=== PATIENT | female | born 1950 | race Hispanic/Latino ===

== ENCOUNTER → 2020-07-23 | Outpatient (CLI) | payer OTHER | END | disposition home or self-care (01) | LOC: RAH 13:09 | PROVIDERS: ATTEND Internal Medicine Cardiovascular Disease | DX: Z13.6 Encounter for screening for cardiovascular disorders (principal) | CPT/HCPCS: 75571 ==

== ENCOUNTER 2021-07-28 08:41 | Day surgery (SDC) | payer MEDICARE ==
[~2021-07-28] VITALS: Ht 157.5 cm; Wt 99.8 kg
[2021-07-28] VITALS (17 sets, daily range): BP systolic 130–180; BP diastolic 71–95
[~2021-07-28 08:41] MED LIST: 0.9%NACL 1000ML 1,000 ML IV ONE
[2021-07-28] MEDS ORDERED: TELM80TA10 PO (10:06)
[2021-07-28] MEDS ORDERED: PANT40TA54 PO (10:06)
[2021-07-28] MEDS ORDERED: APIX5TAB PO (10:06)
[2021-07-28] MEDS ORDERED: LEVO50CA4 PO (10:06)
[2021-07-28] MEDS ORDERED: ATOR20TA65 PO (10:06)
[2021-07-28] MEDS ORDERED: METF-446 PO (10:06)
[2021-07-28] MEDS ORDERED: METO25TA6 PO (10:06)
[2021-07-28] MEDS ORDERED: DULA1.5P SQ (10:06)
[2021-07-28] MEDS ORDERED: IOHEXOL-350 50ML VIAL IV ONE (11:11)
[2021-07-28] MEDS ORDERED: SUCCINYLCHOLINE 200MG/10ML SYR ONE (11:52)
[2021-07-28] MEDS ORDERED: PROPOFOL 10 MG/ML 20ML VIAL IV ONE (11:52)
== END 2021-07-28 14:25 | disposition home or self-care (01) ==
LOC: ENDO 08:41 → DAH 08:41 → ENDO 14:25
PROVIDERS: ATTEND Internal Medicine
DX: K83.1 Obstruction of bile duct (principal); Z20.822 Contact with and (suspected) exposure to COVID-19; K83.9 Disease of biliary tract, unspecified; I10 Essential (primary) hypertension; I25.2 Old myocardial infarction; I25.10 Atherosclerotic heart disease of native coronary artery without angina pectoris; E11.9 Type 2 diabetes mellitus without complications; E78.00 Pure hypercholesterolemia, unspecified; Z90.710 Acquired absence of both cervix and uterus; Z90.49 Acquired absence of other specified parts of digestive tract; Z98.890 Other specified postprocedural states; Z98.891 History of uterine scar from previous surgery; Z87.442 Personal history of urinary calculi; Z79.899 Other long term (current) drug therapy
CPT/HCPCS: 43261; 43273; 43275; 74328; 82948; 87635; 88305; 93005; A4215 ×2; A4221; A4222; A4223; A4606; A4657; A4663; C1769; C9803; J0330; J2704; J7030; Q9967; 43262; 74330